=== PATIENT | female | born 1980 | race Caucasian/White ===

== ENCOUNTER 2023-11-20 14:10 | Emergency (ER) | payer OTHER ==
[2023-11-20] MEDS ORDERED: AMOX TR/POT CLAV 875MG/125MG TABLETS (FP) ONE (14:51)
[2023-11-20] MEDS: DIPHTH,PERTUSS(ACELL),TET 0.5 ML DISP.SYRIN IM ONE (14:59)
[2023-11-20] MEDS: AMOX TR/POT CLAV 875MG/125MG TABLETS (FP) PO ONE (15:00)
[2023-11-20 15:09] VITALS: BP 118/77; PULSE 75; RESP 15; TEMP 98.8; BMI 25.0
== END 2023-11-20 15:14 | disposition home or self-care (01) ==
LOC: FER 14:10
PROC: 3E0234Z Introduction of Serum, Toxoid and Vaccine into Muscle, Percutaneous Approach (ICD-10-PCS; principal; 2023-11-20)
DX: S51.851A Open bite of right forearm, initial encounter (principal); W54.0XXA Bitten by dog, initial encounter; Z23 Encounter for immunization
CPT/HCPCS: 90715; 99284-25